=== PATIENT | female | born 1980 | race Caucasian/White ===

== ENCOUNTER → 2017-12-01 | Outpatient (CLI) | payer OTHER ==
--- NOTE | 2017-12-02 09:01 | MM ---
Reason for exam: screening (asymptomatic). Baseline mammogram. History: Patient history of other cancer. Physical Findings: Nurse did not find any significant physical abnormalities on exam. MG 3D Screening Mammo W/Cad Bilateral CC and MLO view(s) were taken. The breast tissue is heterogeneously dense. This may lower the sensitivity of mammography. No suspicious abnormality. These results were verbally communicated with the patient and result sheet given to the patient on 12/01/17. ASSESSMENT: Negative, BI-RAD 1 RECOMMENDATION: Routine screening mammogram of both breasts in 1 year.
== END | disposition home or self-care (01) ==
LOC: RADMAMWWP 14:10
PROVIDERS: ATTEND Obstetrics & Gynecology
DX: Z12.31 Encounter for screening mammogram for malignant neoplasm of breast (principal)
CPT/HCPCS: 77063; 77067

== ENCOUNTER → 2018-07-27 | Outpatient (CLI) | payer OTHER ==
[2018-07-29 09:23] VITALS: BMI 20.7
== END | disposition home or self-care (01) ==
LOC: LABWHC1 12:55
PROVIDERS: ATTEND Family Medicine
DX: K58.9 Irritable bowel syndrome, unspecified (principal)
CPT/HCPCS: 97802

== ENCOUNTER → 2019-03-10 | Outpatient (CLI) | payer OTHER ==
--- NOTE | 2019-03-11 15:20 | MM ---
Reason for exam: screening (asymptomatic). Last mammogram was performed 1 year and 3 months ago. History: Patient history of other cancer. Physical Findings: A clinical breast exam by your physician is recommended on an annual basis and results should be correlated with mammographic findings. MG Screening Mammo w CAD Bilateral CC and MLO view(s) were taken. Prior study comparison: December 01, 2017, bilateral MG 3d screening mammo w/cad. The breast tissue is heterogeneously dense. This may lower the sensitivity of mammography. No significant changes when compared with prior studies. ASSESSMENT: Benign, BI-RAD 2 RECOMMENDATION: Routine screening mammogram of both breasts in 1 year.
== END | disposition home or self-care (01) ==
LOC: RADMAMWWP 13:14
PROVIDERS: ATTEND Obstetrics & Gynecology
DX: Z12.31 Encounter for screening mammogram for malignant neoplasm of breast (principal)
CPT/HCPCS: 77067

== ENCOUNTER → 2020-08-09 | Outpatient (CLI) | payer BC ==
--- NOTE | 2020-08-14 11:11 | MM ---
Reason for exam: screening (asymptomatic). Last mammogram was performed 1 year and 5 months ago. History: Patient history of other cancer. Physical Findings: A clinical breast exam by your physician is recommended on an annual basis and results should be correlated with mammographic findings. MG Screening Mammo w CAD Bilateral CC and MLO view(s) were taken. Prior study comparison: March 10, 2019, bilateral MG screening mammo w CAD. December 01, 2017, bilateral MG 3d screening mammo w/cad. The breast tissue is heterogeneously dense. This may lower the sensitivity of mammography. There is no discrete abnormality. Overall breast density has increased. ASSESSMENT: Benign, BI-RAD 2 RECOMMENDATION: Routine screening mammogram of both breasts in 1 year.
== END | disposition home or self-care (01) ==
LOC: RADMAMWWP 11:51
PROVIDERS: ATTEND Obstetrics & Gynecology
DX: Z12.31 Encounter for screening mammogram for malignant neoplasm of breast (principal)
CPT/HCPCS: 77067

== ENCOUNTER → 2021-11-27 | Outpatient (CLI) | payer BC ==
--- NOTE | 2021-11-28 11:25 | MM ---
Reason for exam: screening (asymptomatic). Last mammogram was performed 1 year and 4 months ago. History: Patient history of other cancer. Taking hormonal contraceptives. Physical Findings: A clinical breast exam by your physician is recommended on an annual basis and results should be correlated with mammographic findings. MG Screening Mammo w CAD Bilateral CC and MLO view(s) were taken. Prior study comparison: August 09, 2020, bilateral MG screening mammo w CAD. March 10, 2019, bilateral MG screening mammo w CAD. The breast tissue is heterogeneously dense. This may lower the sensitivity of mammography. There is no discrete abnormality. No significant changes when compared with prior studies. ASSESSMENT: Negative, BI-RAD 1 RECOMMENDATION: Routine screening mammogram of both breasts in 1 year.
== END | disposition home or self-care (01) ==
LOC: RADMAMWWP 15:21
PROVIDERS: ATTEND Obstetrics & Gynecology
DX: Z12.31 Encounter for screening mammogram for malignant neoplasm of breast (principal)
CPT/HCPCS: 77067

== ENCOUNTER → 2022-12-06 | Outpatient (CLI) | payer OTHER ==
--- NOTE | 2022-12-09 09:05 | MM ---
Reason for Exam: Screening (asymptomatic). Last screening mammogram was performed 12 month(s) ago. Patient History: Menarche at age 13. First Full-Term at age 26. Premenopausal. Patient has history of breast feeding. Other cancer. Currently using Hormonal Contraceptives. Last menstrual period: 11/23/2022 Risk Values: Emma 5 year model risk: 0.7%. NCI Lifetime model risk: 10.9%. Prior Study Comparison: 03/10/2019 Bilateral Screening Mammogram, [facility]. 08/09/2020 Bilateral Screening Mammogram, [facility]. 11/27/2021 Bilateral Screening Mammogram, [facility]. Tissue Density: The breast tissue is heterogeneously dense. This may lower the sensitivity of mammography. Findings: Analyzed By CAD. There is no suspicious group of microcalcifications or new suspicious mass in either breast. Overall Assessment: Negative, BI-RAD 1 Management: Screening Mammogram of both breasts in 1 year. A clinical breast exam by your physician is recommended on an annual basis and results should be correlated with mammographic findings. Electronically signed and approved by: Carlo Quiroga D.O.
== END | disposition home or self-care (01) ==
LOC: RADMAMWWP 13:48
PROVIDERS: ATTEND Obstetrics & Gynecology
DX: Z12.31 Encounter for screening mammogram for malignant neoplasm of breast (principal)
CPT/HCPCS: 77067

== ENCOUNTER → 2022-12-27 | Outpatient (CLI) | payer OTHER ==
[2022-12-28 02:17] LABS: Basophils # (A) 0.05 X 10*3/uL (0.00-0.10); Basophils % (A) 0.6 %; Eosinophils # (A) 0.28 X 10*3/uL (0.04-0.35); Eosinophils % (A) 3.6 %; HCT 38.2 % (37.2-46.3); HGB 12.6 g/dL (12.0-15.0); Immature Grans, Automated 0.3 %; Lymphocytes # (A) 2.13 X 10*3/uL (0.90-5.00); Lymphocytes % (A) 27.2 %; MCH 31.3 pg (27.0-32.0); MCV 94.8 fL (80.0-97.0); Mean Platelet Volume 10.8 fL (9.5-12.2); Monocytes # (A) 0.55 X 10*3/uL (0.20-1.00); NRBC Per 100 WBC 0 /100 WBCS (0.0-0.0); Neutrophils # (A) 4.79 X 10*3/uL (1.80-7.70); Neutrophils % (A) 61.3 %; Platelet Count 271 X 10*3/uL (140-440); RBC 4.03 X 10*6/uL (4.10-5.20); RDW 12.3 % (11.5-14.5); WBC 7.82 X 10*3/uL (4.50-10.00)
== END | disposition home or self-care (01) ==
LOC: LABWHC1 14:28
PROVIDERS: ATTEND Obstetrics & Gynecology
DX: Z01.812 Encounter for preprocedural laboratory examination (principal); N92.0 Excessive and frequent menstruation with regular cycle
CPT/HCPCS: 36415; 85025

== ENCOUNTER 2023-01-10 06:59 | Day surgery (SDC) | payer OTHER ==
--- NOTE | 2023-01-03 07:51 | HP ---
HISTORY AND PHYSICAL H and P for surgery next week, January 10. HISTORY OF PRESENT ILLNESS: This is a 42-year-old female, 4, para 2-0-2-2, who presents requesting hysteroscopy and NovaSure endometrial ablation for frequent painful menstrual cycles. She is on control pills for contraception, but states that she continues to have menstrual cycles every 2 weeks apart that are unpredictable. She desires no further children, but understands that the ablation is not a method of contraception. Review of systems is otherwise negative. She is declining other contraceptive options as thoroughly discussed in the office. PAST MEDICAL HISTORY: Significant for basal cell carcinoma of the forehead and irritable bowel syndrome. PAST SURGICAL HISTORY: Basal cell carcinoma excised, colposcopy, lithotripsy, and voluntary termination of . CURRENT MEDICATIONS: 1. Loestrin Fe 08/30 control pills daily. 2. Linzess orally p.r.n. ALLERGIES: None known. FAMILY HISTORY: Significant for multiple sclerosis. REPRODUCTIVE HISTORY: Normal spontaneous vaginal deliveries x2, both unremarkable. SOCIAL HISTORY: The patient is a former tobacco smoker. She works for [employer]. Occasional alcohol use. Daily caffeine. PHYSICAL EXAMINATION: VITAL SIGNS: The patient is 155 pounds, 5 feet 7.5 inches, blood pressure 130/74. HEENT: Exam reveals no thyromegaly. No cervical lymphadenopathy. Trachea midline. Good dentition. NECK: Soft and supple with no thyromegaly noted. CHEST: Clear to auscultation in all han anteriorly and posteriorly. CARDIAC: Reveals regular rate and rhythm with no murmur, click, or rub. BREASTS: Exam reveals breasts to be bilaterally symmetric with no skin dimpling, nipple discharge, axillary adenopathy, or discernible lesions or masses. ABDOMEN: Soft and nontender. Active bowel sounds. No CVA tenderness. EXTREMITIES: Reveal no edema. Good range of motion. Good peripheral pulses. PELVIC: Cervix is multiparous in appearance. Pap smear is up-to-date and within normal limits. Uterus is anteverted, anteflexed, mobile, and nontender. Adnexa are negative bilaterally. RECTAL: Reveals FIT-negative stool sample. Endometrial biopsy has been done in the office, and the tissue was within normal limits. IMPRESSION: Polymenorrhea, requesting NovaSure ablation with hysteroscopy. PLAN: I have reviewed with the patient the risks, benefits, and alternatives of this procedure. Again, she understands that this is not the contraceptive method and that condoms will need to be used continuously to prevent conception. The risks of surgery, bleeding, infection, and perforation or damage to bowel, bladder, ureters all reviewed. All questions answered. Second opinion offered and declined. We would, therefore, proceed with surgery for Dee as detailed on 01/10/2023. MMODL / IJN: [id number] /
[~2023-01-10 06:59] MED LIST: DEXAMETHASONE SOD PHOSPHATE 4 MG/ML 1 ML VIAL IV ONE; HYDROmorphone 0.5 MG/0.5 ML SYRINGE IVP PRN; LACTATED RINGERS 1,000 ML IV SCH; ONDANSETRON 4 MG/2 ML VIAL IVP ONE; Pre Op ABX Message 1 EACH MISC MISCELLANE ONE
[2023-01-10] MEDS ORDERED: PROPOFOL 10 MG/ML 20 ML VIAL IV ONE (08:23)
[2023-01-10] MEDS ORDERED: LIDOCAINE 2% INJ 20 MG/ML (2 ML VIAL) ONE (08:23)
[2023-01-10] MEDS ORDERED: KETOROLAC 15 MG/ML 1 ML VIAL ONE (08:23)
[2023-01-10] MEDS ORDERED: fentaNYL (PF) 50 MCG/ML 2 ML AMP ONE (08:23)
--- NOTE | 2023-01-10 08:58 | P.OP ---
Date of Procedure: 01/10/23 Preoperative Diagnosis: Menorrhagia Postoperative Diagnosis: Same, essentially negative appearing Endometrial cavity Procedure(s) Performed: Hysteroscopy, NovaSure endometrial ablation Anesthesia: JESSIA Surgeon: Danitza Desir Estimated Blood Loss (ml): 5 IV fluids (ml): 300 Urine output (ml): 50 Pathology: none sent Condition: stable Disposition: PACU Operative Findings: Smooth, essentially clear endometrial cavity Description of Procedure: Patient is brought to the operating suite where a general anesthetic is administered without difficulty. She's placed in the dorsal lithotomy position. The cervix, vagina, perineal bodies are all prepped and draped in the usual sterile fashion. The appropriate timeout is performed to assure proper patient and procedural identification. Urine hCG is negative. The bladder is drained for approximately 50 mL of clear yellow urine. Examination under anesthesia reveals a small anteverted uterus, negative adnexa bilaterally. Weighted speculum was placed into the vagina and the anterior lip of the cervix is grasped with an Allis clamp. Uterus sounds to a depth of 7 cm. The cervix is gently and systematically dilated using Hanks dilators. Hysteroscope was placed and fluid is infused, the cavity is distended and inspected. It is essentially negative, no polyps no fibroids no defects or septa. The hysteroscope was removed. The NovaSure wand is placed and seated properly. Uterine length of 5.0 cm, width of 3.4 cm is chosen. The machine is properly calibrated and enabled. For 43 seconds and a power of 94 W the procedure is then carried out. When the machine shuts off, the wand is reduced and removed. Hysteroscope was once again placed and the cavity appears to be uniformly blanched. All instrumentation is removed from the vagina. All sponge and instrument counts are correct. Toradol is given prior to leaving the operative suite. Patient is brought back to recovery room in very good condition with stable vital signs including a blood pressure of 106/62, pulse 61, 100% O2 saturation. Patient will follow-up with me in the office in 2 weeks.
[2023-01-10 09:04] VITALS: TEMP 98.7
[2023-01-10 09:11] VITALS: RESP 16
[2023-01-10] MEDS ORDERED: HYDROmorphone 0.5 MG/0.5 ML SYRINGE IVP ONE (09:27)
[2023-01-10 10:24] VITALS: BP 114/80; PULSE 63
== END 2023-01-10 11:04 | disposition home or self-care (01) ==
LOC: OR 06:59
PROVIDERS: ATTEND Obstetrics & Gynecology
DX: N92.0 Excessive and frequent menstruation with regular cycle (principal); Z85.828 Personal history of other malignant neoplasm of skin; K58.9 Irritable bowel syndrome, unspecified; F41.9 Anxiety disorder, unspecified; Z79.3 Long term (current) use of hormonal contraceptives; Z79.899 Other long term (current) drug therapy; Z87.891 Personal history of nicotine dependence; F10.20 Alcohol dependence, uncomplicated; Z87.442 Personal history of urinary calculi
CPT/HCPCS: 81025; 58563; J1100; J2405; J3010; J1885; J2704; J1170; J2001

== ENCOUNTER 2023-02-02 16:54 | Emergency (ER) | payer OTHER ==
[2023-02-02] MEDS ORDERED: SODIUM CHLORIDE 0.9% 1,000 ML IV STA (17:30)
[2023-02-02] MEDS ORDERED: ONDANSETRON 4 MG/2 ML VIAL IVP STA (17:30)
[2023-02-02] MEDS ORDERED: DIPH,PERTUS(ACELL)TETVAC-LF 0.5 ML VIAL IM ONE (17:43)
--- NOTE | 2023-02-02 17:43 | ED ---
General Adult HPI - General Chief complaint: Head Injury Stated complaint: Hit with Metal [place] in Head Time Seen by Provider: 02/02/23 17:15 Source: patient Mode of arrival: wheelchair - History of Present Illness Initial comments: 42-year-old female to the ED with a chief complaint of head injury. Patient states that she was in the shed and putting tools away when the rake acc identally fell approximately 2-3 feet and landed onto the top of her head. This is witnessed by her son reports no LOC. Since then patient states that she has been nauseous, no vomiting. Per son and boyfriend patient has been acting appropriately. Tetanus status unknown. Patient denies chance of as she recently had an ablation and is on control. Denies chest pain or shortness of breath. No other complaints. - Related Data Home Medications Medication Instructions Recorded Confirmed ALPRAZolam [Xanax] 0.5 mg PO BID PRN 01/08/23 01/10/23 Control(Unk) 1 tab PO DAILY 01/08/23 01/10/23 Previous Rx's Medication Instructions Recorded Metoclopramide [Reglan] 10 mg PO Q4-6H PRN 3 Days #12 tab 02/02/23 Allergies Allergy/AdvReac Type Severity Reaction Status Date / Time No Known Allergies Allergy Verified 02/02/23 17:06 Review of Systems ROS Statement: Those systems with pertinent positive or pertinent negative responses have been documented in the HPI. ROS Other: All systems not noted in ROS Statement are negative. Past Medical History Past Medical History: No Reported History Additional Past Medical History / Comment(s): kindey stone History of Any Multi-Drug Resistant Organisms: None Reported Past Surgical History: No Surgical Hx Reported Additional Past Surgical History / Comment(s): lithotripsy, uterine oblasion Past Psychological History: No Psychological Hx Reported Smoking Status: Former smoker Past Alcohol Use History: None Reported Past Drug Use History: None Reported General Exam Limitations: no limitations General appearance: alert, in no apparent distress Head exam: Present: normocephalic, other (Small abrasion without active bleeding the posterior parietal region with several additional excoriation Rx following a linear pattern with no active bleeding.) Eye exam: Present: normal appearance, PERRL, EOMI ENT exam: Present: normal exam Neck exam: Present: normal inspection, other (No midline cervical spinal tenderness to palpation) Respiratory exam: Present: normal lung sounds bilaterally Cardiovascular Exam: Present: regular rate, normal rhythm Neurological exam: Present: alert, oriented X3, CN II-XII intact Psychiatric exam: Present: normal affect, normal mood Skin exam: Present: warm, dry Course Vital Signs 02/02/23 02/02/23 16:59 18:14 Temperature 98.4 F 98.1 F Pulse Rate 88 89 Respiratory 18 16 Rate Blood Pressure 154/73 135/82 O2 Sat by Pulse 100 100 Oximetry Medical Decision Making - Medical Decision Making Was pt. sent in by a medical professional or institution (, PA, CERTIFIED NURSING ASSISTANT, urgent care, hospital, or fpc...) When possible be specific @ -No Did you speak to anyone other than the patient for history (EMS, parent, family, police, friend...)? What history was obtained from this source @ -Spoke to patient's son who witnessed the event and reports no LOC. Spoke to son and boyfriend who report that the patient has been acting appropriately. Did you review nursing and triage notes (agree or disagree)? Why? @ -I reviewed and agree with nursing and triage notes Were old charts reviewed (outside hosp., previous admission, EMS record, old EKG, old radiological studies, urgent care reports/EKG's, fpc records)? Report findings @ -No old charts were reviewed Differential Diagnosis (chest pain, altered mental status, abdominal pain women, abdominal pain men, vaginal bleeding, weakness, fever, dyspnea, syncope, headache, dizziness, GI bleed, back pain, seizure, CVA, palpatations, mental health, musculoskeletal)? @ -Acute fracture, acute hemorrhage, laceration. This is not meant to be an all-inclusive list. EKG interpreted by me (3pts min.). @ -As above X-rays interpreted by me (1pt min.). @ -None done CT interpreted by me (1pt min.). @ -None done U/S interpreted by me (1pt. min.). @ -None done What testing was considered but not performed or refused? (CT, X-rays, U/S, labs)? Why? @ -Imaging of the brain was considered however at this time may be an CT rules are negative. Family reports no LOC and states that patient has been acting appropriately. Has had no episodes of vomiting while in the ED and has been able to tolerate oral intake. At this time felt risk outweigh benefits of imaging. Discussed with patient and family who are agreeable with plan of care. What meds were considered but not given or refused? Why? @ -None Did you discuss the management of the patient with other professionals (professionals i.e. , PA, CERTIFIED NURSING ASSISTANT, lab, RT, psych nurse, psychiatric social worker, research technician, teacher, traffic division commanding officer, case planner)? Give summary @ -No Was smoking cessation discussed for >3mins.? @ -No Was critical care preformed (if so, how long)? @ -No Were there social determinants of health that impacted care today? How? (Homelessness, low income, unemployed, alcoholism, drug addiction, transportation, low edu. Level, literacy, decrease access to med. care, care home, rehab)? @ -No Was there de-escalation of care discussed even if they declined (Discuss DNR or withdrawal of care, Hospice)? DNR status @ -No What co-morbidities impacted this encounter? (DM, HTN, Smoking, COPD, CAD, Cancer, CVA, ARF, Chemo, Hep., AIDS, mental health diagnosis, sleep apnea, morbid obesity)? @ -None Was patient admitted / discharged? Hospital course, mention meds given and route, prescriptions, significant lab abnormalities, going to OR and other pertinent info. @ -Discharged. Patient had improvement of nausea with Zofran and Reglan. At evaluation no evidence of injury needing repair. She discharged home in stable condition with prescription for Reglan. Discussed return precautions with patient and family who verbalized agreement. Undiagnosed new problem with uncertain prognosis? @ -No Drug Therapy requiring intensive monitoring for toxicity (Heparin, Nitro, Insulin, Cardizem)? @ -No Were any procedures done? @ -No Diagnosis/symptom? @ -Acute minor blunt head injury, abrasion Acute, or Chronic, or Acute on Chronic? @ -Acute Uncomplicated (without systemic symptoms) or Complicated (systemic symptoms)? @ -Uncomplicated Side effects of treatment? @ -No Exacerbation, Progression, or Severe Exacerbation? @ -No Poses a threat to life or bodily function? How? (Chest pain, USA, CA, pneumonia, PE, COPD, DKA, ARF, appy, cholecystitis, CVA, Diverticulitis, Homicidal, Suicidal, threat to staff... and all critical care pts) @ -No Disposition Clinical Impression: Head injury Disposition: HOME SELF-CARE Condition: Good Instructions (If sedation given, give patient instructions): Concussion (ED) Additional Instructions: Please return to the Emergency Department if symptoms worsen or any other concerns. Prescriptions: Metoclopramide [Reglan] 10 mg PO Q4-6H PRN 3 Days #12 tab PRN Reason: Nausea Is patient prescribed a controlled substance at d/c from ED?: No Referrals: Andrea Rosenberg DO [Primary Care Provider] - 1-2 days Time of Disposition: 18:20
[2023-02-02 18:16] VITALS: RESP 16; TEMP 98.1
[2023-02-02] MEDS ORDERED: METOCLOPRAMIDE 5 MG/ML 2 ML VIAL IVP STA (18:34)
[2023-02-02] MEDS ORDERED: PROMETHAZINE 25 MG TAB PO STA (19:15)
[2023-02-02 19:17] VITALS: BP 130/79; PULSE 79
== END 2023-02-02 19:17 | disposition home or self-care (01) ==
LOC: EC 16:54
DX: S09.90XA Unspecified injury of head, initial encounter (principal); Z87.891 Personal history of nicotine dependence; Z23 Encounter for immunization; W19.XXXA Unspecified fall, initial encounter
CPT/HCPCS: 90715; 99283; 96374; 96375; 96361; 90471; J2765; J2405

== ENCOUNTER → 2023-12-19 | Outpatient (CLI) | payer OTHER ==
--- NOTE | 2023-12-22 15:03 | MM ---
Reason for Exam: Screening (asymptomatic). Last mammogram was performed 1 year(s) and 1 month(s) ago. Patient History: Menarche at age 13. First Full-Term at age 26. Premenopausal. Patient has history of breast feeding. Other cancer. Currently using Hormonal Contraceptives. Risk Values: Emma 5 year model risk: 0.8%. NCI Lifetime model risk: 10.8%. Prior Study Comparison: 08/09/2020 Bilateral Screening Mammogram, [facility]. 11/27/2021 Bilateral Screening Mammogram, [facility]. 12/06/2022 Bilateral MG screening mammo w CAD, [facility]. Tissue Density: The breasts are heterogeneously dense, which may obscure small masses. Findings: Analyzed By CAD. Right breast: Asymmetry MLO view posterior nipple measuring 12 mm from the nipple. No suspicious calcifications. Left breast: Asymmetry left breast MLO view 31 mm the nipple posterior nipple line. No suspicious calcifications. Overall Assessment: Incomplete: need additional imaging evaluation, BI-RAD 0 Management: Screening Mammogram of both breasts. [facility] will attempt to contact patient to return for supplemental views and ultrasound if indicated. Patient should continue monthly self-breast exams. A clinical breast exam by your physician is recommended on an annual basis. This exam should not preclude additional follow-up of suspicious palpable abnormalities. Note on Emma scores and lifetime risk: 1. A Emma score greater than 3% is considered moderate risk. If this is the case, consider specialist referral to assess eligibility for a risk reducing agent. 2. If overall lifetime risk for the development of breast cancer is 20% or higher, the patient may qualify for future screening with alternating mammogram and breast MRI. Electronically signed and approved by: Hesham Tafoya DO
== END | disposition home or self-care (01) ==
LOC: RADMAMWWP 15:09
PROVIDERS: ATTEND Obstetrics & Gynecology
DX: Z12.31 Encounter for screening mammogram for malignant neoplasm of breast (principal)
CPT/HCPCS: 77067

== ENCOUNTER → 2024-01-02 | Outpatient (CLI) | payer OTHER ==
--- NOTE | 2024-01-02 11:30 | MM ---
Reason for Exam: Additional evaluation requested from abnormal screening. Last screening mammogram was performed less than 1 month ago. Patient History: Menarche at age 13. First Full-Term at age 26. Premenopausal. Patient has history of breast feeding. Currently using Hormonal Contraceptives. Last menstrual period: 12/25/2022 Risk Values: Emma 5 year model risk: 0.8%. NCI Lifetime model risk: 10.8%. Prior Study Comparison: 12/06/2022 Bilateral MG screening mammo w CAD, [facility]. 12/19/2023 Bilateral MG screening mammo w CAD, [facility]. Tissue Density: The breasts are heterogeneously dense, which may obscure small masses. Findings: Analyzed By CAD. Pattern appears stable. Impression no persisting suspicious spiculated or lobular densities or architectural distortion is evident within either breast. Findings are likely benign. No suspicious groups of microcalcifications, spiculated or lobular masses, architectural distortion or other secondary signs of malignancy are mammographically apparent. Overall Assessment: Benign, BI-RAD 2 Management: Screening Mammogram of both breasts in 1 year. A negative mammogram report should not preclude additional follow up of suspicious palpable abnormalities. Patient should continue monthly self breast exam. A clinical breast exam by your physician is recommended on an annual basis and results should be correlated with mammographic findings. Note on Emma scores and lifetime risk: 1. A Emma score greater than 3% is considered moderate risk. If this is the case, consider specialist referral to assess eligibility for a risk reducing agent. 2. If overall lifetime risk for the development of breast cancer is 20% or higher, the patient may qualify for future screening with alternating mammogram and breast MRI. Electronically signed and approved by: Caleb Andrews D.O. Radiologis
== END | disposition home or self-care (01) ==
LOC: RADMAMWWP 09:55
PROVIDERS: ATTEND Obstetrics & Gynecology
DX: R92.333 Mammographic heterogeneous density, bilateral breasts (principal)
CPT/HCPCS: 77062; 77066